=== PATIENT | female | born 1960 | race Caucasian/White ===

== ENCOUNTER 2017-07-26 09:03 | Inpatient (IN) | payer OTHER ==
[2017-07-26 11:28] LABS: Hematocrit 44 % (35-47); Mean Corpuscular HGB Conc 34 g/dl (31-36); Mean Corpuscular Hemoglobin 33 pg (27-31); Mean Corpuscular Volume 98 fL (80-97); Mean Platelet Volume 8.8 um3 (7.4-10.4); Platelet Count 190 10^3/ul (150-450); Red Blood Count 4.49 10^6/ul (4.0-5.4); Red Cell Distribution Width 13 % (10.5-15); White Blood Count 4.7 10^3/ul (3.5-10.8)
[2017-07-26 11:43] LABS: EGFR Non-African American 86.2 (>60)
[2017-07-26] MEDS: Dofetilide CAP* 500 MCG PO SCH (13:34)
[2017-07-26] MEDS: Saline FLUSH-PERIPHERAL* 10 ML SYRINGE PERIPH SCH ×2 (13:44→19:29)
[2017-07-27] MEDS: Dofetilide CAP* 500 MCG PO SCH ×2 (00:30→11:51)
[2017-07-27] MEDS: Saline FLUSH-PERIPHERAL* 10 ML SYRINGE PERIPH SCH ×3 (01:31→22:02)
[2017-07-27] MEDS ORDERED: POTASSIUM 99 MG PO SCH (09:00)
[2017-07-27] MEDS: Aspirin 81 mg CHEW TAB* 81 MG TAB.CHEW PO SCH (09:19)
[2017-07-27] MEDS: Metoprolol Tartrate TAB* 50 mg PO SCH (09:19)
[2017-07-27] MEDS: Magnesium Oxide TAB* 400 MG PO SCH (09:19)
[2017-07-27] MEDS: Potassium Chlor TAB* 10 MEQ TAB.ER PO SCH (10:40)
[2017-07-27 11:08] LABS: Hematocrit 45 % (35-47); Hemoglobin 15.4 g/dl (12.0-16.0); Mean Corpuscular HGB Conc 34 g/dl (31-36); Mean Corpuscular Hemoglobin 34 pg (27-31); Mean Corpuscular Volume 98 fL (80-97); Mean Platelet Volume 9.1 um3 (7.4-10.4); Platelet Count 199 10^3/ul (150-450); Red Blood Count 4.61 10^6/ul (4.0-5.4); Red Cell Distribution Width 13 % (10.5-15); White Blood Count 4.4 10^3/ul (3.5-10.8)
[2017-07-27 11:24] LABS: EGFR Non-African American 84.8 (>60)
[2017-07-28] MEDS: Dofetilide CAP* 500 MCG PO SCH ×3 (00:43→22:10)
[2017-07-28] MEDS: Saline FLUSH-PERIPHERAL* 10 ML SYRINGE PERIPH SCH ×3 (04:00→22:09)
[2017-07-28] MEDS: Potassium Chlor TAB* 10 MEQ TAB.ER PO SCH (09:43)
[2017-07-28] MEDS: Aspirin 81 mg CHEW TAB* 81 MG TAB.CHEW PO SCH (09:43)
[2017-07-28] MEDS: Magnesium Oxide TAB* 400 MG PO SCH (09:43)
[2017-07-28] MEDS: Metoprolol Tartrate TAB* 50 mg PO SCH (09:43)
[2017-07-28 11:04] LABS: Hematocrit 47 % (35-47); Hemoglobin 16.4 g/dl (12.0-16.0); Mean Corpuscular HGB Conc 35 g/dl (31-36); Mean Corpuscular Hemoglobin 34 pg (27-31); Mean Corpuscular Volume 97 fL (80-97); Red Blood Count 4.84 10^6/ul (4.0-5.4); Red Cell Distribution Width 13 % (10.5-15); White Blood Count 4.9 10^3/ul (3.5-10.8)
[2017-07-28 11:14] LABS: EGFR Non-African American 80.9 (>60)
[2017-07-28 11:16] LABS: Mean Platelet Volume 9.1 um3 (7.4-10.4); Platelet Count 208 10^3/ul (150-450)
--- NOTE | 2017-07-28 16:52 | PN ---
Subjective Date of Service: 07/28/17 - CC: palpitations, PAF Interval History: Juan Carlos reports persistence of palpitations when she stands up. This has been her typical pattern, she does not feel it has improved with Tikosyn No perceived side effects on Tikosyn. Medications Active Medications: Aspirin (Aspirin 81 Mg Chew Tab*) 81 mg PO DAILY [facility] Last Admin: 07/28/17 09:43 Dose: 81 mg Dofetilide (Tikosyn Cap*) 500 mcg PO Q12H [facility] Last Admin: 07/28/17 11:43 Dose: 500 mcg Magnesium Oxide (Magox 400 Tab*) 400 mg PO DAILY [facility] Last Admin: 07/28/17 09:43 Dose: 400 mg Metoprolol Tartrate (Lopressor Tab*) 50 mg PO DAILY [facility] Last Admin: 07/28/17 09:43 Dose: 50 mg Potassium Chloride (Klor Con Er Tab*) 10 meq PO DAILY [facility] Last Admin: 07/28/17 09:43 Dose: 10 meq Sodium Chloride ( Peripheral Saline Flush*) 10 ml PERIPH Q8H [facility] Last Admin: 07/28/17 09:44 Dose: 10 ml Objective Vital Signs: Temp Pulse Resp BP Pulse Ox 98.2 F 54 16 98/72 98 07/28/17 11:11 07/28/17 11:11 07/28/17 11:11 07/28/17 11:11 07/28/17 11:11 Oxygen Devices in Use Now: None Appearance: lean tall older middle aged woman in bed, no distress. Eyes: No Scleral Icterus, PERRLA Ears/Nose/Mouth/Throat: Clear Oropharnyx, Mucous Membranes Moist Neck: Trachea Midline, No Thyroid Enlargement, Masses Respiratory: Symmetrical Chest Expansion and Respiratory Effort, Clear to Auscultation Cardiovascular: NL Sounds; No Murmurs; No JVD, RRR Abdominal: NL Sounds; No Tenderness; No Distention, No Hepatosplenomegaly Extremities: No Edema, No Clubbing, Cyanosis Skin: No Rash or Ulcers Neurological: Alert and Oriented x 3, NL Gait, NL Muscle Strength and Tone Lines/Tubes/Other Access: Clean, Dry and Intact Peripheral IV Laboratory Results: 07/28/17 10:39 07/28/17 10:39 EKG Data: ECG 07/28/17: NSR 59 bpm, QRS axis +30, QTc 447 ms Monitor today: PAF rates up to 146 bpm (seen yesterday as well). Assessment/Plan 56 yo female with a longstanding hx PAF, failed Multaq and propafanone. Hx Jim's thyroiditis as well as adrenalectomy for pheochromocytoma (2012). Now nearly loaded with Tikosyn, but persistent symptomatic PA.fib. QTc is fine on her current dose. PAFib.: -Continue Tikosyn loading, if pattern shows no improvement on this medication can refer back for EP evaluation. -Apparent orthostatic trigger is unusual, I am not sure of the significance or how to address. Thyroid: -Update TFT's as none done I believe since 2017.
[2017-07-29] MEDS: Saline FLUSH-PERIPHERAL* 10 ML SYRINGE PERIPH SCH ×2 (04:07→09:21)
[2017-07-29] MEDS: Dofetilide CAP* 500 MCG PO SCH (09:20)
[2017-07-29] MEDS: Aspirin 81 mg CHEW TAB* 81 MG TAB.CHEW PO SCH (09:21)
[2017-07-29] MEDS: Potassium Chlor TAB* 10 MEQ TAB.ER PO SCH (09:21)
[2017-07-29] MEDS: Magnesium Oxide TAB* 400 MG PO SCH (09:21)
[2017-07-29] MEDS: Metoprolol Tartrate TAB* 50 mg PO SCH (09:25)
[2017-07-29 10:58] LABS: Hematocrit 46 % (35-47); Hemoglobin 16.2 g/dl (12.0-16.0); Mean Corpuscular HGB Conc 36 g/dl (31-36); Mean Corpuscular Hemoglobin 34 pg (27-31); Mean Corpuscular Volume 97 fL (80-97); Mean Platelet Volume 8.6 um3 (7.4-10.4); Platelet Count 198 10^3/ul (150-450); Red Blood Count 4.72 10^6/ul (4.0-5.4); Red Cell Distribution Width 13 % (10.5-15); White Blood Count 4.6 10^3/ul (3.5-10.8)
[2017-07-29 11:10] LABS: EGFR Non-African American 95.6 (>60)
[2017-07-29 11:47] VITALS: BP 80/65
--- NOTE | 2017-07-30 04:03 | DS ---
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 She was admitted on 07/26/17 and received Tikosyn 500 mcg b.i.d. Her serial EKGs did not show significant prolongation in her QT interval , EKG today shows sinus rhythm at 66 beats a minute with a corrected QT interval of 452 milliseconds with an incomplete right bundle-branch block. The patient did continue to feel episodes of AFib and tachycardia getting up in the mornings and orthostatic blood pressures were checked today showing resting blood pressure 105/79 with a pulse 85, sitting blood pressure 99/70 with a pulse of 125, and standing blood pressure 107/52 with a pulse of 160 (sinus tachycardia). Later this morning, she did however develop some paroxysmal AFib with a rapid ventricular response. PAST MEDICAL HISTORY: 1. The patient has a past medical history of supraventricular tachycardia, status post ablation in 2001. 2. Paroxysmal atrial fibrillation, who has failed on Multaq and propafenone. 3. Jim's thyroiditis, on thyroid replacement. 4. Pheochromocytoma, status post removal of adrenal mass in 2012. 5. Hypertension in the past related to her pheochromocytoma. 6. Vasovagal syncope lifelong. ALLERGIES: She has no known drug allergies. SOCIAL HISTORY: She works at the [employer] at [employer] She is a nonsmoker and no history of alcohol use or abuse or recreational drug use. She is and lives with her physician . PHYSICAL EXAMINATION: On exam today, see orthostatic vitals above. She is 5 feet 10 inches, weighs 157 pounds with a BMI of 22.5. General Appearance: Tall , lean, fit appearing, older middle-aged woman, in no acute distress. Psychologically pleasant and cooperative. Neurologically, awake, alert, and oriented to person, place, and time. Cranial nerves II through XII intact. Grossly normal sensory and motor function in the upper and lower extremities. Normal gait. Skin: Warm and dry. No cyanosis or rashes. Pupils are equal and round. Mucous membranes moist. Neck: Without increased JVP. Lungs: Clear with good effort. No wheezes, rales, or rhonchi. Coronary: S1, S2 regular without murmurs or rubs. Abdomen: Soft and nontender. Extremities: Free of edema and warm. DIAGNOSTIC STUDIES/LAB DATA: From 07/28/17, white count 4.9, hemoglobin 16.4, hematocrit 47, platelets 208. Sodium 139, potassium 4.5, chloride 103, bicarb 28, BUN 16, creatinine 0.74, glucose 81. From today, TSH 4.67, free T4 0.83. A 12-lead ECG as above. Predominantly normal sinus rhythm with daily breakthroughs of brief paroxysmal atrial fibrillation with rapid ventricular rates. SUMMARY: In summary, Juan Carlos Guerrero is a 56-year-old woman with a history of paroxysmal atrial fibrillation, who underwent Tikosyn loading in the hospital. She has had no complications from the Tikosyn, but unfortunately today it has not been holding her atrial fibrillation. Current plan is to discharge her on Tikosyn and her low-dose of Toprol. For her orthostatic symptoms and findings, I am wondering if her autonomic insufficiency with vasovagal syncope also includes POTS. I discussed this with her. I encouraged her in the mornings to rest her legs on the bed prior to standing and see if this improves her symptoms. She will follow up in our office within 1 month with an ECG and she knows she can call if she has continued episodes of regular AFib or any new concerns. She is being provided with a list of medications that are contraindicated with Tikosyn and additional Tikosyn education and this has been verbally discussed with her as well. DISCHARGE MEDICATIONS: The patient's medications on discharge include: 1. Aspirin 81 mg a day. 2. Dofetilide 500 mcg b.i.d. 3. Magnesium 250 mg a day. 4. Metoprolol tartrate 50 mg a day. 5. Potassium 10 mEq a day. [id number]/[facility] #: [id number] [facility]
== END 2017-07-29 11:55 | disposition home or self-care (01) | DRG 310 ==
LOC: MEDTELE 09:09
PROVIDERS: ADMIT Specialist; ATTEND Specialist
DX: I48.0 Paroxysmal atrial fibrillation (principal); I45.10 Unspecified right bundle-branch block; R00.0 Tachycardia, unspecified; E06.3 Autoimmune thyroiditis; I10 Essential (primary) hypertension; R55 Syncope and collapse; Z79.82 Long term (current) use of aspirin; Z90.49 Acquired absence of other specified parts of digestive tract; Z80.9 Family history of malignant neoplasm, unspecified; I49.1 Atrial premature depolarization
CPT/HCPCS: 36415; 80048; 83735; 84439; 84443; 85027; 93005; A9270-GY